=== PATIENT | male | born 1985 ===

== ENCOUNTER 2020-01-08 12:55 | Emergency (ER) | payer OTHER ==
[~2020-01-08] VITALS: Ht 180.3 cm; Wt 83.0 kg
[2020-01-08] MEDS ORDERED: LIDOCAINE 1% HCL (LOCAL ANESTH.) INJ 20ML MDV IJ ONE (14:45)
[2020-01-08] MEDS ORDERED: cefTRIAXone SOD 1,000 MG VL IM ONE (15:15)
[2020-01-08] MEDS ORDERED: KETOROLAC TROMETH 60MG/2ML VIAL IM ONE (15:15)
[2020-01-08 15:23] VITALS: BP 120/72
== END 2020-01-08 15:20 | disposition home or self-care (01) ==
LOC: EEVIPCON 12:59 → ER 12:59
DX: L02.31 Cutaneous abscess of buttock (principal)
CPT/HCPCS: 10060; 87075; 96372; 99284; J0696; J1885